=== PATIENT | female | born 1975 | race Caucasian/White ===

== ENCOUNTER 2017-11-03 19:39 | Emergency (ER) | payer OTHER, MEDICAID ==
[~2017-11-03] VITALS: Ht 154.9 cm; Wt 104.0 kg
[~2017-11-03 19:39] MED LIST: SERT100T
[2017-11-04] MEDS ORDERED: IPRATROPIUM/ALBUTEROL 0.5-3(2.5)MG/3ML NEB HHN ONE (01:45)
[2017-11-04] MEDS ORDERED: METHYLPREDNISOLONE SOD SUCC 125 MG/2 ML VIAL IM ONE (01:45)
[2017-11-04 02:25] VITALS: BP 114/75
== END 2017-11-04 02:25 | disposition home or self-care (01) ==
LOC: ER 20:48
DX: J44.9 Chronic obstructive pulmonary disease, unspecified (principal); J06.9 Acute upper respiratory infection, unspecified; Z98.890 Other specified postprocedural states
CPT/HCPCS: 71045; 81025; 94640; 96372; 99283; J2930; J7620; 96375